=== PATIENT | male | born 1985 ===

== ENCOUNTER → 2017-06-28 | Outpatient (CLI) | payer SELFPAY ==
[~2017-06-28] MED LIST: FAMO20 PO; HYDACE5 PO; INCARCERATION; OXYACE5T PO; PRED20 PO; PROM25 PO; RXONDA4ODT MM; SULTRIDS PO
[2017-06-28 10:14] LABS: Influenza A Negative (NEGATIVE); Influenza B Negative (NEGATIVE)
== END ==
LOC: LAB EV 09:28
PROVIDERS: Family Medicine
DX: K52.9 Noninfective gastroenteritis and colitis, unspecified (principal)
CPT/HCPCS: 87804